=== PATIENT | female | born 1995 | race Caucasian/White ===

== ENCOUNTER 2022-08-30 19:36 | Emergency (ER) | payer SELFPAY ==
[2022-08-30] VITALS (7 sets, daily range): BP systolic 122–144; BP diastolic 72–112; PULSE 97–108; RESP 22; TEMP 36.9; O2SAT 96–97; BMI 40.7
--- NOTE | 2022-08-30 19:41 | ED_ITS ---
HPI - SOB/Dyspnea General Chief Complaint: Upper Respiratory Symptoms Stated Complaint: cough, thinks she has the flu Time Seen by Provider: 08/30/22 19:38 History of Present Illness HPI Narrative: 26-year-old female daily smoker with BMI 40.7 presents with a chief complaint of various symptoms including fever, body aches as well as cough, congestion, sore throat and a few episodes of vomiting since Monday. She denies any significant work of breathing but states on the whole she just feels unwell, she has been exposed to other persons with relatively similar symptoms and is concerned that she may have influenza. She denies recent travel. Related Data Previous Rx's Medication Instructions Recorded benzonatate 200 mg capsule 200 mg PO BID PRN cough #20 caps 08/30/22 ondansetron 4 mg disintegrating 4 mg PO TID-QID PRN nausea and 08/30/22 tablet vomiting #10 tabs promethazine 6.25 mg-codeine 10 5 ml PO Q4-6H PRN cough #473 mL 08/30/22 mg/5 mL syrup Allergies Allergy/AdvReac Type Severity Reaction Status Date / Time Sulfa (Sulfonamide Allergy Vomiting Verified 08/30/22 19:44 Antibiotics) Review of Systems Review of Systems Narrative: GENERAL: See HPI HEENT: See HPI RESPIRATORY: See HPI CARDIOVASCULAR: Denies chest pain, palpitations, orthopnea, edema, GASTROINTESTINAL: See HPI : Denies dysuria, frequency, incontinence, hematuria, urinary retention. MUSCULOSKELETAL: denies weakness, joint pain, or bony pain SKIN: Denies rash, skin lesions, or other NEUROLOGIC: Denies weakness, headache, numbness, change in speech, confusion, seizures, incoordination. PSYCHIATRIC: No concerning psychosocial issues. 12 point review of systems is negative except for those stated above Patient History Social History Smoking Status: Current every day smoker Exam Narrative Exam Narrative: GENERAL: [26] year old patient appears stated age. Well-developed patient, in mild distress. HEAD: Atraumatic. Normocephalic. EYES: Pupils equal round and reactive. Extraocular motions intact. No scleral icterus. No injection or drainage. ENT: Nose without bleeding, purulent drainage. Throat without erythema, tonsillar hypertrophy or exudate. Airway patent. NECK: Trachea midline. Non tender CARDIOVASCULAR: Regular rate and rhythm without murmurs, gallops, or rubs. RESPIRATORY: Clear to auscultation. Breath sounds equal bilaterally. No wheezes, rales, or rhonchi. GASTROINTESTINAL: Abdomen soft, non-tender, nondistended. EXTREMITIES: No edema or joint tenderness. BACK: Nontender without deformity or crepitance. No flank tenderness. NEURO: AOx3. SKIN: No rash or erythema of visible areas Initial Vital Signs Initial Vital Signs: Vital Signs Temperature 98.5 F 08/30/22 19:44 Pulse Rate 102 H 08/30/22 19:44 Respiratory Rate 22 08/30/22 19:44 Blood Pressure 138/78 08/30/22 19:44 Pulse Oximetry 97 08/30/22 19:44 Oxygen Delivery Method 08/30/22 19:44 Course Orders Ordered: Discontinued Medications Acetaminophen/Codeine Phosphate (Acetaminophen/Codeine Soln 5 Ml Solution) 10 ml PO NOW ONE Stop: 08/30/22 20:58 Last Admin: 08/30/22 21:04 Dose: 10 ml Documented By: ROSI Acetaminophen/Codeine Phosphate (Acetaminophen/Codeine Soln 5 Ml Solution) 5 ml PO NOW ONE Stop: 08/30/22 21:09 Last Admin: 08/30/22 21:14 Dose: Not Given Documented By: ROSI Ondansetron HCl (Ondansetron 4 Mg Odt Prepack) 1 bottle MISC SEEINSTR ONE Stop: 08/30/22 20:58 Last Admin: 08/30/22 21:04 Dose: 1 bottle Documented By: ROSI Vital Signs Vital signs: Vital Signs - 8 hr 08/30/22 19:44 Temperature 98.5 F Pulse Rate 102 H Respiratory Rate 22 Blood Pressure 138/78 Pulse Oximetry 97 Oxygen Delivery Method Room Air MDM - SOB/Dyspnea Lab Data Labs: Lab Results 08/30/22 Range/Units 19:45 SARS-CoV-2 (PCR) Negative (Negative) Influenza A (RT-PCR) Flu a positive H (NEGATIVE) Influenza B (RT-PCR) Flu b negative (NEGATIVE) RSV (PCR) Negative (Negative) MDM Narrative Medical decision making narrative: 26-year-old female with history of smoking and elevated BMI presents with a few days of upper respiratory symptoms including congestion, sore throat, cough, body aches and fever. She is had exposures to influenza and this is thought to be the most likely diagnosis though COVID and pneumonia are considered. She has no significant work of breathing such as tachypnea, use of intercostals or hypoxemia. Though she has had vomiting she shows no sign of dehydration such as moist mucous membranes are poor skin turgor. She is tolerating orals without difficulty. Respiratory swab confirms influenza a. Prescription for cough medications and antinausea med sent to her pharmacy of choice. Return precautions discussed and questions answered to her apparent satisfaction Discharge Plan Departure Patient Disposition: Home Clinical Impression: Influenza Instructions: DI for Influenza -- Adult Activity Restrictions/Additional Instructions: *You have been diagnosed with [influenza A] *What to do: *Please continue to take your regular medications as directed. [ ] New medication prescriptions sent to your pharmacy: [ ] [x ] New medication written as a paper prescription [ ] No new medications given *Please follow up with your primary care provider in 2-3 days, call for an appointment. Let them know you were seen in the Emergency Department and that we ask that you be seen in follow up. We will electronically transmit a record of today's note if your PCP is in our system *If you do not have a primary care provider please contact the [facility] Resource line at [phone]. They will ask some questions about your medical history and help get you set up with a doctor in the community. *Return to Emergency Department if you should have any new, worsening or concerning symptoms Prescriptions: New benzonatate 200 mg capsule 200 mg PO BID PRN (Reason: cough) Qty: 20 0RF promethazine-codeine 6.25-10 mg/5 mL syrup 5 ml PO Q4-6H PRN (Reason: cough) Qty: 473 0RF ondansetron 4 mg tablet,disintegrating 4 mg PO TID-QID PRN (Reason: nausea and vomiting) Qty: 10 0RF Stand Alone Forms: Work Release Note Visit Report Forms: Patient Portal/API
[2022-08-30 20:38] LABS: Influenza A - CEPHEID Flu A POSITIVE (NEGATIVE); Influenza B - CEPHEID Flu B NEGATIVE (NEGATIVE); Respiratory Syncytial Virus Negative (Negative)
[2022-08-30 20:50] LABS: COVID-19 CEPHEID 4-PLEX PCR Negative (Negative)
[2022-08-30] MEDS: ONDANSETRON 4 MG ODT PREPACK 1 BOTTLE MISC (21:04)
[2022-08-30] MEDS: ACETAMINOPHEN/CODEINE SOLN 5 ML SOLUTION 10 ML PO (21:04)
== END 2022-08-30 21:23 | disposition home or self-care (01) ==
PROVIDERS: Emergency Provider Emergency Medicine
DX: J10.1 Influenza due to other identified influenza virus with other respiratory manifestations (principal); Z20.822 Contact with and (suspected) exposure to COVID-19
CPT/HCPCS: 0241U; 99283

== ENCOUNTER → 2023-07-24 15:19 | Outpatient (CLI) | payer OTHER, SELFPAY ==
[2023-07-24 19:52] LABS: Hepatitis B Surface Antigen NEGATIVE s/c (NEGATIVE)
[2023-07-24 20:07] LABS: HIV 1 & 2 Ab/Ag 4th Gen Combo NEGATIVE (NEGATIVE); Hep C Virus Ab w/Reflex Quant NEGATIVE s/c (NEGATIVE)
[2023-07-26 05:20] LABS: RPR Screen Non Reactive (Non Reactive)
== END ==
PROVIDERS: PCP Student in an Organized Health Care Education/Training Program; Referring Provider Physician Assistant Medical; Visit Provider Physician Assistant Medical
DX: Z11.3 Encounter for screening for infections with a predominantly sexual mode of transmission (principal)
CPT/HCPCS: 36415; 86592; 86803; 87340; 87389

== ENCOUNTER → 2023-07-27 15:35 | Outpatient (CLI) | payer OTHER, SELFPAY ==
--- NOTE | 2023-07-27 15:36 | DI.US.S_ITS ---
PROCEDURE: US PELVIC COMPLETE INDICATIONS: pelvic pain TECHNIQUE: Real-time scanning was performed of the pelvic organs, with image documentation. Additional endovaginal scanning was necessary due to incomplete visualization of the adnexal and endometrial structures by transabdominal scanning. COMPARISON: None. FINDINGS: Uterus: Uterus is anteverted and normal in size at 8.5 x 3.6 x 4.4 cm. The myometrium is homogeneous. The endometrium measures 5 mm combined thickness. Ovaries: The right ovary measures 3.4 x 1.7 x 2.3 cm, with a calculated ovarian volume of 7 cc. The left ovary measures 3.2 x 2.9 x 2.0 cm, with a calculated ovarian volume of 10 cc. The ovaries have a normal sonographic appearance. Less than 12 follicles can be seen in each ovary. No adnexal masses are seen. Other: No pathologic free abdominal or pelvic fluid. IMPRESSION: Unremarkable pelvic ultrasound. We strive to produce accurate, complete, and clear reports of imaging services. To assist us in improving patient care, this report was composed using standard report templates and voice recognition software. Therefore, it may contain abnormal punctuation, insertions and/or omissions. Occasional wrong-word or sound-alike substitutions may occur. Though we review the report and make efforts to correct it, we do recommend that the report be read carefully in proper context to recognize any text inaccuracies. Dictated by: Robin Esteban M.D. on 07/27/2023 at 16:41 Approved by: Robin Esteban M.D. on 07/27/2023 at 16:42
[2023-07-27 19:51] LABS: Urine N gonorrhoeae NOT DETECTED
[2023-07-27 19:57] LABS: Urine Chlamydia NOT DETECTED
== END ==
PROVIDERS: PCP Student in an Organized Health Care Education/Training Program; Referring Provider Physician Assistant Medical; Visit Provider Physician Assistant Medical
DX: Z11.3 Encounter for screening for infections with a predominantly sexual mode of transmission (principal); R10.2 Pelvic and perineal pain
CPT/HCPCS: 76830; 76856; 87491; 87591

== ENCOUNTER → 2023-12-12 17:05 | Outpatient (CLI) | payer OTHER, SELFPAY ==
--- NOTE | 2023-12-12 17:07 | DI.RAD.S_ITS ---
PROCEDURE: XR CHEST 2V INDICATIONS: Subacute cough TECHNIQUE: 2 views of the chest were acquired. COMPARISON: None. FINDINGS: Surgical changes and devices: None. Lungs and pleura: Lungs are clear. No pleural effusions or pneumothorax. Mediastinum: Mediastinal contours are normal. Heart size is normal. Bones and chest wall: No suspicious bony abnormalities. Soft tissues appear unremarkable. IMPRESSION: No acute cardiopulmonary abnormality is seen. Dictated by: Saray Painting M.D. on 12/13/2023 at 10:11 Approved by: Saray Painting M.D. on 12/13/2023 at 10:11
[2023-12-12 17:24] LABS: Add Manual Diff / Slide Review NO; Basophils Absolute Auto 100 /uL (0-100); Basophils Percent Auto 0.5 % (0-2); Eosinophils Absolute Auto 100 /uL (0-450); Eosinophils Percent Auto 0.8 % (2-4); Hematocrit 41.2 % (36-46); Lymphocytes Absolute Auto 3400 /uL (1100-4500); Lymphocytes Percent Auto 29.5 % (25-40); Mean Corpuscular HGB Conc 34.1 % (30-36); Mean Corpuscular Hemoglobin 30.4 PG (26-34); Mean Corpuscular Volume 89.4 fL (80-100); Monocytes Absolute Auto 800 /uL (0-900); Monocytes Percent Auto 6.6 % (3-14); Neutrophils Absolute Auto 7300 /uL (1500-7000); Neutrophils Percent Auto 62.6 % (50-75); Platelet Count 352 X10^3/uL (150-400); Red Blood Cell Count 4.61 X10^6/uL (4.0-5.2); Red Cell Distribution Width 12.7 % (11.6-14.8); White Blood Cell Count 11.6 X10^3/uL (4.5-11.0)
[2023-12-12 18:07] LABS: Erythrocyte Sedimentation Rate 7 MM/HR (0-20)
== END ==
PROVIDERS: PCP Student in an Organized Health Care Education/Training Program; Referring Provider Family Medicine; Visit Provider Family Medicine
DX: R05.9 Cough, unspecified (principal); M06.9 Rheumatoid arthritis, unspecified; M79.10 Myalgia, unspecified site
CPT/HCPCS: 36415; 71046; 85025; 85651

== ENCOUNTER → 2023-12-20 12:35 | Outpatient (CLI) | payer OTHER, SELFPAY ==
[2023-12-20 13:31] LABS: COVID-19 CEPHEID 4-PLEX PCR Negative (Negative); Influenza A - CEPHEID Flu A NEGATIVE (NEGATIVE); Influenza B - CEPHEID Flu B NEGATIVE (NEGATIVE); Respiratory Syncytial Virus Negative (Negative)
== END ==
PROVIDERS: PCP Student in an Organized Health Care Education/Training Program; Visit Provider Physician Assistant
DX: R05.9 Cough, unspecified (principal)
CPT/HCPCS: 0241U

== ENCOUNTER → 2024-03-18 12:01 | Outpatient (CLI) | payer OTHER, SELFPAY | PROVIDERS: PCP Student in an Organized Health Care Education/Training Program; Visit Provider Physician Assistant Surgical | DX: J02.9 Acute pharyngitis, unspecified (principal) | CPT/HCPCS: 87070 ==